=== PATIENT | female | born 1985 | race Caucasian/White ===

== ENCOUNTER → 2024-02-10 | Outpatient (CLI) | payer OTHER ==
[2024-02-10 18:03] LABS: BASO # 0.02 K/mm3 (0.02-0.10); EOS # 0.09 K/mm3 (0.04-0.40); HEMOGLOBIN 12.5 g/dL (12.5-16.0); LYMPH# 2.19 K/mm3 (1.50-4.00); MEAN CELL VOLUME 89 fl (78-100); MEAN CORPUSCULAR HEMOGLOBIN 29 pg (27-31); MEAN CORPUSCULAR HGB CONC 33 g/dL (33-37); MEAN PLATELET VOLUME 10.7 fl (7.4-10.4); MONO # 0.51 K/mm3 (0.20-0.80); NEU # 5.84 K/mm3 (1.40-6.50); PLATELET COUNT 307 K/mm3 (130-400); RED BLOOD COUNT 4.26 M/mm3 (4.10-5.30); RED CELL DISTRIBUTION WIDTH 12.6 % (11.5-14.5); WHITE BLOOD COUNT 8.7 K/mm3 (4.8-10.8)
[2024-02-10 18:16] LABS: URINE APPEARANCE CLOUDY (CLEAR); URINE BILIRUBIN NEGATIVE (NEGATIVE); URINE COLOR RED (YELLOW); URINE GLUCOSE TRACE (NEGATIVE); URINE KETONE NEGATIVE (NEGATIVE); URINE PROTEIN(semi-quant) 2+ (NEGATIVE)
[2024-02-10 18:17] LABS: URINE BLOOD 3+ (NEGATIVE); URINE LEUKOCYTE ESTERASE NEGATIVE (NEGATIVE); URINE NITRATE POSITIVE (NEGATIVE)
== END ==
LOC: LAB 17:45
PROVIDERS: Family Medicine
DX: N93.9 Abnormal uterine and vaginal bleeding, unspecified (principal); R82.90 Unspecified abnormal findings in urine